=== PATIENT | female | born 1930 | race Asian ===

== ENCOUNTER 2018-10-04 10:35 | Emergency (ER) | payer BC, OTHER ==
[2018-10-04 10:47] VITALS: BP 157/67; PULSE 84; TEMP 98.2; BMI 29.2
--- NOTE | 2018-10-04 11:18 | PDOC ---
History of Present Illness - General Chief Complaint: Rectal Bleed Stated Complaint: SEND BY PCP Time Seen by Provider: 10/04/18 11:16 - History of Present Illness Initial Comments: 10/04/18 11:16 88 yo F with h/o HTN, HLD, DM, nephrolithiasis who p/w hematuria. Patient reports episode of dark red blood with urination (10/02/18), at approximately 1130 AM, and second episode of painless bright red blood in urine at 1200 PM 30 minutes later. Denies BPR. Normal bowel habits, and stool. Denies abdominal pain , vaginal bleeding, dysuria. Denies complaints. Patient denies MARTINEZ, palpitations, neck pain/stiffness, N/V, F,C, CP, SOB, urinary complaints, abdominal pain, diarrhea, constipation, lightheadedness, weakness, sensory changes. 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 No weakness. HEAD, EYES, EARS, NOSE AND THROAT: No change in vision. No ear pain or discharge. No sore throat. CARDIOVASCULAR: No chest pain or shortness of breath RESPIRATORY: No cough, wheezing, or hemoptysis. GASTROINTESTINAL: No nausea, vomiting, diarrhea or constipation. GENITOURINARY: + Hematuria. No dysuria, frequency, or change in urination. MUSCULOSKELETAL: No joint or muscle swelling or pain. No neck or back pain. SKIN: No rash NEUROLOGIC: No headache, vertigo, loss of consciousness, or change in strength/ sensation. ENDOCRINE: No increased thirst. No abnormal weight change HEMATOLOGIC/LYMPHATIC: No anemia, easy bleeding, or history of blood clots. ALLERGIC/IMMUNOLOGIC: No hives or skin allergy. *Physical Exam - Vital Signs Last Vital Signs Temp Pulse Resp BP Pulse Ox 98.2 F 84 18 157/67 99 10/04/18 10:43 10/04/18 10:43 10/04/18 10:43 10/04/18 10:43 10/04/18 10:43 - Physical Exam Comments: 10/04/18 11:17 GENERAL: Awake, alert, and fully oriented, in no acute distress HEAD: No signs of trauma, normocephalic, atraumatic EYES: PERRLA, EOMI, sclera anicteric, conjunctiva clear ENT: Hearing grossly normal, nares patent, oropharynx clear without exudates. Moist mucosa NECK: Normal ROM, supple, no lymphadenopathy, JVD, or masses LUNGS: No distress, speaks full sentences, clear to auscultation bilaterally HEART: Regular rate and rhythm, normal S1 and S2, no murmurs, rubs or gallops, peripheral pulses normal and equal bilaterally. ABDOMEN: Soft, nontender, normoactive bowel sounds. No guarding, no rebound. No masses. Neg CVA ttp. GENITOURINARY: Nml appearing external genitalia. Absent blood in vaginal vault. Neg adenexal ttp, or CMT on BM. Cervical os closed. Chaperoned by Dr. orlando. RECTAL: Absent gross blood. Absent hemmorhoids or fissures. No rectal prolapse. Chaperoned by Dr. li. EXTREMITIES : Normal inspection, Normal range of motion, no edema. No clubbing or cyanosis. SKIN: Warm, Dry, normal turgor, no rashes or lesions noted Moderate Sedation - Procedure Monitoring Vital Signs: Procedure Monitoring Vital Signs Temperature 98.2 F 10/04/18 10:43 Pulse Rate 84 10/04/18 10:43 Respiratory Rate 18 10/04/18 10:43 Blood Pressure 157/67 10/04/18 10:43 O2 Sat by Pulse Oximetry (%) 99 10/04/18 10:43 ED Treatment Course - LABORATORY CBC & Chemistry Diagram: 10/04/18 12:45 10/04/18 12:45 - ADDITIONAL ORDERS Additional order review: 10/04/18 15:18 TECHNIQUE: Sequential axial images were obtained from the domes of the diaphragm through the symphysis pubis utilizing urinary tract calculi protocol. The lung bases are free of acute infiltrates or pleural effusions. There is a small hiatal hernia in the retrocardiac space. There is a 6 mm calcification within the lower pole of the left kidney consistent with a nonobstructing calculus. There is no evidence of additional calcifications within the kidneys, ureters or urinary bladder suspicious for urinary tract calculi. There is a marked deformity of the right kidney consistent with cortical scarring. There is no evidence of hydronephrosis or obstructive uropathy. No significant abnormalities of the liver, spleen, pancreas, or adrenal glands are identified. The gallbladder is clear. There is no evidence of intra-abdominal, retroperitoneal or pelvic mass lesions, fluid collections or lymphadenopathy. There is no evidence of pneumoperitoneum, bowel obstruction or intra-abdominal abscess. There is no CT evidence of acute appendicitis or diverticulitis. There is no evidence of acute bony pathology. IMPRESSION: 1. Left nephrolithiasis. 2. Cortical scarring of the right right kidney with no evidence of obstructive uropathy. 3. No acute pathology within the abdomen and pelvis. Please see above discussion. Reported By: Rosas Barbosa MD 10/04/18 0685 Delon Joshi Technologist: Chuck Silverman Transcribed Date/Time: 10/04/181458 Chief Ophthalmic Technician: Rosas Barbosa Medical Decision Making - Medical Decision Making 10/04/18 11:50 88 yo F with h/o HTN, HLD, DM, nephrolithiasis who p/w hematuria. Vitals wnl, AF , A&Ox3. Abdominal exam unremarkable. Neg CVA ttp. Will assess for obstructive uroapthy/nephrolithaisis, cystitis, rectal bleed. Non toxic, AF. Low suspicion pyelonephritis. ED Course: CBC, CMP, UA, UCx Spiral CT 10/04/18 13:54 UA: 29 RBC, 2+ Blood 10/04/18 14:35 BUN/Cr: 23/0.9 CMP: Unremarkable FOBT: Neg 10/04/18 15:[address]: IMPRESSION: 1. Left nephrolithiasis. 2. Cortical scarring of the right right kidney with no evidence of obstructive uropathy. 3. No acute pathology within the abdomen and pelvis. 10/04/18 15:27 Patient advised to f/u with urology stable for d/c with return precautions. *DC/Admit/Observation/Transfer Diagnosis at time of Disposition: Hematuria Qualifiers: Hematuria type: unspecified type Qualified Code(s): R31.9 - Hematuria, unspecified - Discharge Dispostion Disposition: HOME Condition at time of disposition: Stable Decision to Admit order: No - Referrals Referrals: Rich Richards MD [Staff Physician] - - Patient Instructions Printed Discharge Instructions: DI for Hematuria Additional Instructions: Please return to the emergency department with any new or worsening symptoms or concerns. Please follow up with urology within 72 hours. - Post Discharge Activity - Attestations Physician Attestion: 10/04/18 11:17 I attest to the information provided in this note.
--- NOTE | 2018-10-04 12:18 | PDOC ---
Attending Attestation - Resident Resident Name: Delon Joshi - ED Attending Attestation I have performed the following: I have examined & evaluated the patient, The case was reviewed & discussed with the resident, I agree w/resident's findings & plan, Exceptions are as noted - HPI HPI: 10/04/18 12:16 88 yo F with h/o DM HTN prior renal colic here with blood with urination. was intitially black when urinating, then noted blood bright red in toilet bowl. started 2 days ago. no abd pain no n/v no f/c no flank pain. 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 does not have a urologist. currently. stent was placed many years ago at [facility]. pt denies any fever or chills. no bloody bm. denies vaginal bleeding. no other surgical history. 10/04/18 12:36 - Physicial Exam PE: 10/04/18 12:37 awake alert lungs clear bilaterally heart rrr no mrg abd soft nt nd. ext wwp. vaginal exam without vaginal bleeding on speculum exam. rectal exam no gross blood. durand stool guiac sent. skin warm and dry. nuero alert oriented x 3. - Medical Decision Making 10/04/18 12:17 differential renal colic, bladder pathology, infection such as uti, rectal bleed. pt denies vaginal bleeding. plan rectal exam, guiac, labs ua urine culture. 10/04/18 12:53 vaginal exam with no blood in vault. rectal exam no gross blood. guiac sent. labs pending. will obtain ct renal.
[2018-10-04 13:30] LABS: URINE APPEARANCE CLEAR; URINE BILIRUBIN NEGATIVE (<2.0 mg/dL); URINE COLOR LTYELLOW; URINE GLUCOSE (UA) NEGATIVE (NEGATIVE); URINE KETONE NEGATIVE (NEGATIVE); URINE LEUK ESTERASE NEGATIVE (NEGATIVE); URINE NITRITE NEGATIVE (NEGATIVE); URINE PROTEIN NEGATIVE (NEGATIVE); URINE UROBILINOGEN NEGATIVE mg/dL (0.2-1.0)
[2018-10-04 13:39] LABS: EPI CELLS RARE /HPF (FEW)
[2018-10-04 13:59] LABS: BASO % 0.9 % (0-2.0); EOS % 4.1 % (0-4.5); HEMATOCRIT 37.6 % (32.4-45.2); HEMOGLOBIN 12.7 GM/dL (10.7-15.3); LYMPH % 28.3 % (8-40); MCH 31.7 pg (25.7-33.7); MCHC 33.7 g/dl (32.0-36.0); MEAN PLT VOLUME 7.2 fl (7.5-11.1); MONO % 6.6 % (3.8-10.2); NEUT % 60.1 % (42.8-82.8); PLATELET COUNT 256 K/MM3 (134-434); RDW 12.5 % (11.6-15.6); WHITE BLOOD COUNT 5.6 K/mm3 (4.0-10.0)
[2018-10-04 14:26] LABS: ALBUMIN 3.7 g/dl (3.4-5.0); ALK PHOS 96 U/L (45-117); ANION GAP 6 MMOL/L (8-16); BILIRUBIN,TOTAL 0.5 mg/dL (0.2-1); BLOOD UREA NITROGEN 23 mg/dL (7-18); CALCIUM 9.2 mg/dL (8.5-10.1); CHLORIDE 106 mmol/L (98-107); CO2 29 mmol/L (21-32); CREATININE 0.9 mg/dL (0.55-1.3); GLUCOSE,RANDOM 116 mg/dL (74-106); POTASSIUM 4.1 mmol/L (3.5-5.1); SGOT/AST 19 U/L (15-37); SGPT/ALT 27 U/L (13-61); SODIUM 141 mmol/L (136-145); TOT PROT 7.2 g/dl (6.4-8.2)
== END 2018-10-04 15:34 | disposition home or self-care (01) ==
LOC: JER 10:35
DX: R31.9 Hematuria, unspecified (principal); I10 Essential (primary) hypertension; E78.00 Pure hypercholesterolemia, unspecified; E11.9 Type 2 diabetes mellitus without complications; Z79.84 Long term (current) use of oral hypoglycemic drugs; Z87.442 Personal history of urinary calculi
CPT/HCPCS: 36415; 74176; 80053; 81003; 81015; 82272; 85025; 87086; 99284-25